=== PATIENT | male | born 1965 | race Caucasian/White ===

== ENCOUNTER 2024-07-18 13:20 | Emergency (ER) | payer MEDICARE, MEDICAID ==
[~2024-07-18] VITALS: Ht 177.8 cm; Wt 100.0 kg
[2024-07-18 14:12] VITALS: PULSE 60; RESP 16; TEMP 98.3; O2SAT 97
[2024-07-18] MEDS: KETOROLAC TROMETH 60MG/2ML VIAL IM ONE (14:22)
[2024-07-18 14:25] LABS: Basophils # (auto) 0.2 10 ^3/uL (0-0.2); Basophils % (auto) 1.3 % (0.0-2.0); Eosinophils # (auto) 1.3 10 ^3/uL (0-0.8); Eosinophils % (auto) 11.1 % (0.0-7.0); Hematocrit 45.5 % (41.0-53.0); Hemoglobin 15.3 g/dL (13.5-17.5); Lymphocytes # (auto) 2.1 10 ^3/uL (0.4-5.4); Lymphocytes % (auto) 17.3 % (10.0-50.0); Mean Corpuscular Hemoglobin 32.5 pg (28.0-32.0); Mean Corpuscular Hgb Conc. 33.7 g/dL (32.0-36.0); Mean Corpuscular Volume 96.7 fL (80.0-100.0); Monocytes # (auto) 0.9 10 ^3/uL (0-1.3); Monocytes % (auto) 7.3 % (0.0-12.0); Neutrophils # (auto) 7.5 10 ^3/uL (1.6-8.6); Nucleated Red Blood Cells % 0.1 %; Platelet Count (auto) 310 10^3/uL (140-450); Red Cell Distribution Width 14.7 % (11.8-14.3); White Blood Cell 11.9 10^3/uL (4.4-10.8)
[2024-07-18 14:36] LABS: Chloride 107 mmol/L (98-107); Potassium 4.9 mmol/L (3.5-5.1); Sodium 139 mmol/L (136-145)
[2024-07-18 14:37] LABS: Anion Gap 3 (5-15); Calcium 10.2 mg/dL (8.7-10.4); Carbon Dioxide 29 mmol/L (20-31)
[2024-07-18 14:42] LABS: BUN/Creatinine Ratio 12.9 (10.0-20.0); Blood Urea Nitrogen 16 mg/dL (9-23); Glucose 87 mg/dL (74-106)
[2024-07-18] MEDS: PERMETHRIN 5 % TOPICAL CREAM 60GM TOP ONE (15:17)
[2024-07-18] MEDS ORDERED: NAP500T PO (15:40)
[2024-07-18] MEDS ORDERED: PER60TP TOP (15:40)
[2024-07-18] MEDS ORDERED: CETI10TA2 PO (15:40)
[2024-07-18 17:00] VITALS: BP 144/78; PULSE 60; RESP 14; O2SAT 94
[2024-07-18] MEDS: HYDROcodone-ACET 7.5/325MG TAB PO ONE (17:24)
== END 2024-07-18 17:55 | disposition home or self-care (01) ==
LOC: EDBD 13:20 → ER 13:20
DX: M17.12 Unilateral primary osteoarthritis, left knee (principal); B86 Scabies; I10 Essential (primary) hypertension; Z85.850 Personal history of malignant neoplasm of thyroid
CPT/HCPCS: 36415; 73562; 80048; 85025; 96372; 99284; J1885